=== PATIENT | male | born 1950 | race Caucasian/White ===

== ENCOUNTER 2022-10-10 07:44 | Observation (INO) | payer OTHER ==
--- OUTSIDE RECORDS SUMMARY | 2022-10-10 07:48 | XMS REPORT | Continuity of Care Document ---
:1950 Author Organization [facility] t Address [address] [facility] [address] [place] [address] Care Team Providers Name Role Phone Covarrubias Gregorio Hill Primary Care Physician Cristy Norman Attending Clinician Ramon Aguila MD Attending Clinician Doctor Unassigned, [place] Attending Clinician Unavailable RAMON AGUILA Attending Clinician Unavailable CRISTY VELAZQUEZ Attending Clinician Unavailable Pob, Adc Lab Main Attending Clinician Unavailable El Gardner MD Attending Clinician EL GARDNER Attending Clinician Unavailable Anjel Dennison DO Attending Clinician Lab, Adc Fam Pob I Attending Clinician Unavailable Gianni Gomez Attending Clinician GIANNI SORIA Attending Clinician Unavailable Justin RAVI, Sendal K.H. Attending Clinician RAMON AGUILA Admitting Clinician Unavailable CRISTY VELAZQUEZ Admitting Clinician Unavailable Payers Payer Name Policy Type Policy Number Effective Date Expiration Date S ource Problems Condition Condition Condition Status Onset Resolution Last Treating Co mments Source Name Details Category Date Date Treatment Clinician Date Primary Primary Disease Active Overview: Univ ers osteoarthr osteoarthr 2-28 Formattin ity of itis of itis of 00:00: g of this [place] right knee right knee 00 note Me dical might be Branch different from the original. Added automatic ally from request for surgery [id number] Total knee Total knee Disease Active U nivers replacemen replacemen 6-04 it y of t status t status 00:00: [place] [address] [facility] Allergies, Adverse Reactions, Alerts Allergy Allergy Status Severity Reaction(s) Onset Inactive Treating Comm ents Source Name Type Date Date Clinician NO KNOWN Drug Active Univers ALLERGIE Class ity of S [facility] Social History Social Habit Start Date Stop Date Quantity Comments Source Exposure to Not sure [facility] SARS-CoV-2 (event) Medica l Branch Alcohol intake 2021-06-10 2021-06-10 0 /d [facility] 00:00:00 00:00:[address] [facility] Sex Assigned At [birth year] [facility] 00:00:00 00:00:[address] [facility] Smoking Status Start Date Stop Date Source Never smoked tobacco [facility] Medications Ordered Filled Start Stop Current Ordering Indication Dosage Frequency Signature Comments Components Source Medication Medication Date Date Medication? Clinician (SIG) Name Name DICLOFENAC 2021-08 Yes [id number] TAKE 1 Univers 75 mg EC 0-04 4102 TABLET BY ity of tablet 00:00: MOUTH [place] 00 TWICE A Medical DAY WITH Branch MEALS DICLOFENAC Yes [id number] TAKE 1 Univers 75 mg EC 7-11 TABLET BY ity of tablet 00:00: MOUTH [place] 00 TWICE A Medical DAY WITH Branch MEALS DICLOFENAC 2021- No [id number] TAKE 1 Univers 75 mg EC 7-11 10-04 4102 TABLET BY ity o f tablet 00:00: 00:00 MOUTH [place] 00 :00 TWICE A Medical DAY WITH Branch MEALS DICLOFENAC Yes [id number] TAKE 1 Univers 75 mg EC 3-23 TABLET BY ity of tablet 00:00: MOUTH [place] 00 TWICE A Medical DAY WITH Branch MEALS DICLOFENAC 2021- No [id number] TAKE 1 Univers 75 mg EC 3-23 07-11 TABLET BY ity o f tablet 00:00: 00:00 MOUTH [place] 00 :00 TWICE A Medical DAY WITH Branch MEALS diclofenac Yes [id number] 75mg Take 1 Univers 75 mg EC 1-04 tablet by ity of tablet 00:00: mouth 2 [place] 00 (two) Medical times Branch daily with meals. diclofenac 2021- No [id number] 75mg Take 1 Univers 75 mg EC 1-04 03-23 tablet by ity o f tablet 00:00: 00:00 mouth 2 [place] 00 :00 (two) Medical times [place] daily with meals. DICLOFENAC 0 Yes [id number] TAKE 1 Univers 75 mg EC 6-25 TABLET BY ity of tablet 00:00: MOUTH [place] 00 TWICE A Medical DAY WITH Branch FOOD DICLOFENAC 2020-0 Yes [id number] TAKE 1 Univers 75 mg EC 6-25 TABLET BY ity of tablet 00:00: MOUTH [place] 00 TWICE A Medical DAY WITH Branch FOOD DICLOFENAC 0 2- No [id number] TAKE 1 Univers 75 mg EC 6-25 -04 TABLET BY ity o f tablet 00:00: 00:00 MOUTH [place] 00 :00 TWICE A Medical DAY WITH Branch FOOD amLODIPine Yes 10mg Take 10 mg U nivers 10 mg 6-23 by mouth ity of tablet 16:01: daily. [address] amLODIPine Yes 10mg Take 10 mg U nivers 10 mg 6-23 by mouth ity of tablet 16:01: daily. [address] amLODIPine Yes 10mg Take 10 mg U nivers 10 mg 6-23 by mouth ity of tablet 16:01: daily. [address] amLODIPine 0 Yes 10mg Take 10 mg U nivers 10 mg 6-23 by mouth ity of tablet 16:01: daily. [address] amLODIPine Yes 10mg Take 10 mg U nivers 10 mg 6-23 by mouth ity of tablet 16:01: daily. [address] amLODIPine Yes 10mg Take 10 mg U nivers 10 mg 6-23 by mouth ity of tablet 16:01: daily. [address] VITAMIN E, Yes 100U Take 100 Uni vers DL,TOCOPHER 2-11 Units by ity of YL ACET, 09:05: mouth [place] (DL-VITAMIN 50 daily. Medica l E ACETATE) Branch 100 unit capsule ascorbic Yes 500mg Take 500 Univ ers acid 2-11 mg by ity of (VITAMIN C) 09:05: mouth 2 Nitin as 500 mg 50 (two) Medical tablet times [place] daily. VITAMIN B Yes 1{tbl} Take 1 Tab Univers COMPLEX 2-11 by mouth ity of ORAL 09:05: daily. [address] CALCIUM/MAG 0 Yes 1{tbl} Take 1 Tab Univers NESIUM/ZINC 2-11 by mouth 2 it y of (CALCIUM-MA 09:05: (two) [place] GNESUIUM-ZI 50 times Medical [place]) daily. Branch 333-133-5 mg Tab rosuvastati 2020-0 Yes 10mg Take 10 mg Univers n 10 mg 2-11 by mouth ity of tablet 09:05: at [place] [address] bedtime. Medical Indication Branch s: takes 3x/week only omega 2020-0 Yes 1{capsu Take 1 Univers 3-dha-epa-f 2-11 le} capsule by it y of magda oil 09:05: mouth [place] (FISH OIL) 50 daily. Medical 360-1,200 Branch mg CpDR aspirin 81 2020-0 Yes 81mg Take 81 mg U nivers mg chewable 2-11 by mouth ity of tablet 09:05: daily. [address] VITAMIN E, 0 Yes 100U Take 100 Uni vers DL,TOCOPHER 2-11 Units by ity of YL ACET, 09:05: mouth [place] (DL-VITAMIN 50 daily. Medica l E ACETATE) Branch 100 unit capsule ascorbic 0 Yes 500mg Take 500 Univ ers acid 2-11 mg by ity of (VITAMIN C) 09:05: mouth 2 Nitin as 500 mg 50 (two) Medical tablet times Branch daily. VITAMIN B 0 Yes 1{tbl} Take 1 Tab Univers COMPLEX 2-11 by mouth ity of ORAL 09:05: daily. [address] CALCIUM/MAG 2020-0 Yes 1{tbl} Take 1 Tab Univers NESIUM/ZINC 2-11 by mouth 2 it y of (CALCIUM-MA 09:05: (two) [place] GNESUIUM-ZI 50 times Medical [place]) daily. Branch 333-133-5 mg Tab rosuvastati 2020-0 Yes 10mg Take 10 mg Univers n 10 mg 2-11 by mouth ity of tablet 09:05: at [place] [address] bedtime. Medical Indication Branch s: takes 3x/week only omega 2020-0 Yes 1{capsu Take 1 Univers 3-dha-epa-f 2-11 le} capsule by it y of magda oil 09:05: mouth [place] (FISH OIL) 50 daily. Medical 360-1,200 Branch mg CpDR aspirin 81 0 Yes 81mg Take 81 mg U nivers mg chewable 2-11 by mouth ity of tablet 09:05: daily. [address] VITAMIN E, Yes 100U Take 100 Uni vers DL,TOCOPHER 2-11 Units by ity of YL ACET, 09:05: mouth [place] (DL-VITAMIN 50 daily. Medica l E ACETATE) Branch 100 unit capsule ascorbic Yes 500mg Take 500 Univ ers acid 2-11 mg by ity of (VITAMIN C) 09:05: mouth 2 Nitin as 500 mg 50 (two) Medical tablet times Branch daily. VITAMIN B Yes 1{tbl} Take 1 Tab Univers COMPLEX 2-11 by mouth ity of ORAL 09:05: daily. [address] CALCIUM/MAG Yes 1{tbl} Take 1 Tab Univers NESIUM/ZINC 2-11 by mouth 2 it y of (CALCIUM-MA 09:05: (two) [place] GNESUIUM-ZI 50 times Medical [place]) daily. Branch 333-133-5 mg Tab rosuvastati Yes 10mg Take 10 mg Univers n 10 mg 2-11 by mouth ity of tablet 09:05: at [place] [address] bedtime. Medical Indication Branch s: takes 3x/week only omega Yes 1{capsu Take 1 Univers 3-dha-epa-f 2-11 le} capsule by it y of magda oil 09:05: mouth [place] (FISH OIL) 50 daily. Medical 360-1,200 Branch mg CpDR aspirin 81 Yes 81mg Take 81 mg U nivers mg chewable 2-11 by mouth ity of tablet 09:05: daily. [address] VITAMIN E, Yes 100U Take 100 Uni vers DL,TOCOPHER 2-11 Units by ity of YL ACET, 09:05: mouth [place] (DL-VITAMIN 50 daily. Medica l E ACETATE) Branch 100 unit capsule ascorbic 0 Yes 500mg Take 500 Univ ers acid 2-11 mg by ity of (VITAMIN C) 09:05: mouth 2 Nitin as 500 mg 50 (two) Medical tablet times [place] daily. VITAMIN B Yes 1{tbl} Take 1 Tab Univers COMPLEX 2-11 by mouth ity of ORAL 09:05: daily. [address] CALCIUM/MAG 0 Yes 1{tbl} Take 1 Tab Univers NESIUM/ZINC 2-11 by mouth 2 it y of (CALCIUM-MA 09:05: (two) [place] GNESUIUM-ZI 50 times Medical [place]) daily. Branch 333-133-5 mg Tab rosuvastati 2020-0 Yes 10mg Take 10 mg Univers n 10 mg 2-11 by mouth ity of tablet 09:05: at [place] [address] bedtime. Medical Indication Branch s: takes 3x/week only omega 2020-0 Yes 1{capsu Take 1 Univers 3-dha-epa-f 2-11 le} capsule by it y of magda oil 09:05: mouth [place] (FISH OIL) 50 daily. Medical 360-1,200 Branch mg CpDR aspirin 81 0 Yes 81mg Take 81 mg U nivers mg chewable 2-11 by mouth ity of tablet 09:05: daily. [address] VITAMIN E, 0 Yes 100U Take 100 Uni vers DL,TOCOPHER 2-11 Units by ity of YL ACET, 09:05: mouth [place] (DL-VITAMIN 50 daily. Medica l E ACETATE) Branch 100 unit capsule ascorbic 0 Yes 500mg Take 500 Univ ers acid 2-11 mg by ity of (VITAMIN C) 09:05: mouth 2 Nitin as 500 mg 50 (two) Medical tablet times Branch daily. VITAMIN B 0 Yes 1{tbl} Take 1 Tab Univers COMPLEX 2-11 by mouth ity of ORAL 09:05: daily. [address] CALCIUM/MAG 0 Yes 1{tbl} Take 1 Tab Univers NESIUM/ZINC 2-11 by mouth 2 it y of (CALCIUM-MA 09:05: (two) [place] GNESUIUM-ZI 50 times Medical [place]) daily. Branch 333-133-5 mg Tab rosuvastati 2020-0 Yes 10mg Take 10 mg Univers n 10 mg 2-11 by mouth ity of tablet 09:05: at [place] [address] bedtime. Medical Indication Branch s: takes 3x/week only omega 2020-0 Yes 1{capsu Take 1 Univers 3-dha-epa-f 2-11 le} capsule by it y of magda oil 09:05: mouth [place] (FISH OIL) 50 daily. Medical 360-1,200 Branch mg CpDR aspirin 81 0 Yes 81mg Take 81 mg U nivers mg chewable 2-11 by mouth ity of tablet 09:05: daily. [address] Branch VITAMIN E, Yes 100U Take 100 Uni vers DL,TOCOPHER 2-11 Units by ity of YL ACET, 09:05: mouth [place] (DL-VITAMIN 50 daily. Medica l E ACETATE) Branch 100 unit capsule ascorbic Yes 500mg Take 500 Univ ers acid 2-11 mg by ity of (VITAMIN C) 09:05: mouth 2 Nitin as 500 mg 50 (two) Medical tablet times Branch daily. VITAMIN B Yes 1{tbl} Take 1 Tab Univers COMPLEX 2-11 by mouth ity of ORAL 09:05: daily. [address] CALCIUM/MAG Yes 1{tbl} Take 1 Tab Univers NESIUM/ZINC 2-11 by mouth 2 it y of (CALCIUM-MA 09:05: (two) [place] GNESUIUM-ZI 50 times Medical [place]) daily. Branch 333-133-5 mg Tab rosuvastati Yes 10mg Take 10 mg Univers n 10 mg 2-11 by mouth ity of tablet 09:05: at [place] [address] bedtime. Medical Indication Branch s: takes 3x/week only omega Yes 1{capsu Take 1 Univers 3-dha-epa-f 2-11 le} capsule by it y of magda oil 09:05: mouth [place] (FISH OIL) 50 daily. Medical 360-1,200 Branch mg CpDR aspirin 81 Yes 81mg Take 81 mg U nivers mg chewable 2-11 by mouth ity of tablet 09:05: daily. [address] Branch VALSARTAN Yes TAKE 1 Univer s 40 mg 4-07 TABLET BY ity of tablet 00:00: MOUTH [place] 00 TWICE A Medical DAY Branch VALSARTAN 0 Yes TAKE 1 Univer s 40 mg 4-07 TABLET BY ity of tablet 00:00: MOUTH [place] 00 TWICE A Medical DAY Branch VALSARTAN 2019-0 Yes TAKE 1 Univer s 40 mg 4-07 TABLET BY ity of tablet 00:00: MOUTH [place] 00 TWICE A Medical DAY Branch VALSARTAN 2020-0 Yes TAKE 1 Univer s 40 mg 4-07 TABLET BY ity of tablet 00:00: MOUTH [place] 00 TWICE A Medical DAY Branch VALSARTAN Yes TAKE 1 Univer s 40 mg 4-07 TABLET BY ity of tablet 00:00: MOUTH [place] 00 TWICE A Medical DAY Branch VALSARTAN Yes TAKE 1 Univer s 40 mg 4-07 TABLET BY ity of tablet 00:00: MOUTH [place] 00 TWICE A Medical DAY Branch Diclofenac 2018-08 Yes [id number] Apply Univers Sodium 0-25 2mg-4mg to ity of (VOLTAREN) 00:00: affected Nitin as 1 % gel 00 area 4 Medical times Branch daily Diclofenac 2018-08 Yes [id number] Apply Univers Sodium 0-25 2mg-4mg to ity of (VOLTAREN) 00:00: affected Nitin as 1 % gel 00 area 4 Medical times Branch daily Diclofenac 2018-08 Yes [id number] Apply Univers Sodium 0-25 2mg-4mg to ity of (VOLTAREN) 00:00: affected Nitin as 1 % gel 00 area 4 Medical times Branch daily Diclofenac 2018-08 Yes [id number] Apply Univers Sodium 0-25 2mg-4mg to ity of (VOLTAREN) 00:00: affected Nitin as 1 % gel 00 area 4 Medical times Branch daily Diclofenac 2018-08 Yes [id number] Apply Univers Sodium 0-25 2mg-4mg to ity of (VOLTAREN) 00:00: affected Nitin as 1 % gel 00 area 4 Medical times Branch daily Diclofenac 2018-08 Yes [id number] Apply Univers Sodium 0-25 4102 2mg-4mg to ity of (VOLTAREN) 00:00: affected Nitin as 1 % gel 00 area 4 Medical times Branch daily acetaminoph Yes [id number] 1{tbl} Take 1 Univers en-codeine 3-26 05 tablet by ity of (TYLENOL-CO 00:00: mouth [place] DEINE #3) 00 every 4 Medical 300-30 mg (four) Branch tablet hours as needed for Pain (scale 4-6) or Pain (scale 7-10). acetaminoph Yes [id number] 1{tbl} Take 1 Univers en-codeine 3-26 05 tablet by ity of (TYLENOL-CO 00:00: mouth [place] DEINE #3) 00 every 4 Medical 300-30 mg (four) Branch tablet hours as needed for Pain (scale 4-6) or Pain (scale 7-10). acetaminoph Yes [id number] 1{tbl} Take 1 Univers en-codeine 3-26 05 tablet by ity of (TYLENOL-CO 00:00: mouth [place] DEINE #3) 00 every 4 Medical 300-30 mg (four) Branch tablet hours as needed for Pain (scale 4-6) or Pain (scale 7-10). acetaminoph Yes [id number] 1{tbl} Take 1 Univers en-codeine 3-26 05 tablet by ity of (TYLENOL-CO 00:00: mouth [place] DEINE #3) 00 every 4 Medical 300-30 mg (four) Branch tablet hours as needed for Pain (scale 4-6) or Pain (scale 7-10). acetaminoph Yes [id number] 1{tbl} Take 1 Univers en-codeine 3-26 05 tablet by ity of (TYLENOL-CO 00:00: mouth [place] DEINE #3) 00 every 4 Medical 300-30 mg (four) Branch tablet hours as needed for Pain (scale 4-6) or Pain (scale 7-10). acetaminoph Yes [id number] 1{tbl} Take 1 Univers en-codeine 3-26 05 tablet by ity of (TYLENOL-CO 00:00: mouth [place] DEINE #3) 00 every 4 Medical 300-30 mg (four) Branch tablet hours as needed for Pain (scale 4-6) or Pain (scale 7-10). Vital Signs Vital Name Observation Time Observation Value Comments Source Systolic blood 2021-05-25 19:31:00 134 mm[Hg[facility] pressure [facility] Diastolic blood 2021-05-25 19:31:00 68 mm[Hg] [facility] Heart rate 2021-05-25 19:31:00 61 /min [facility] Body weight 2021-05-25 19:31:00 107.049 kg [facility] BMI 2021-05-25 19:31:00 30.30 kg/m2 [facility] Procedures Procedure Date / Time Performed Performing Clinician Sourc e REFERRAL- 2021-06-12 05:01:00 Doctor Unassigned, No [facility] REQUEST/RESPONSE Name [facility] Encounters Start End Encounter Admission Attending Care Care Encounter Source Date/Time Date/Time Type Type Clinicians Facility Department ID 2022-05-11 2022-05-11 [facility] 1.2.840.114 [id number] Univers 00:00:00 00:00:00 Cristy S HEALTH 350.1.13.10 it y of [place] 4.2.7.2.686 Nitin as ANAHI?BLEA [phone] Nm evangelina [address] MEDICAL OFFICE [facility] 2022-02-10 2022-02-10 [facility] 1.2.840.114 [id number] Univers 00:00:00 00:00:00 Cristy S HEALTH 350.1.13.10 it y of [place] 4.2.7.2.686 Nitin as ANAHI?BLEA [phone] Nm evangelina GUTIÉRREZ [address] [place] [address] MEDICAL OFFICE [facility] 2021-10-28 2021-10-28 [facility] 1.2.840.114 [id number] Univers 00:00:00 00:00:00 Cristy S HEALTH 350.1.13.10 it y of [place] 4.2.7.2.686 Nitin as ANAHI?BLEA [phone] Nm evangelina GUTIÉRREZ [address] [place] [address] OFFICE [facility] 2021-08-11 2021-08-11 [facility]aca [facility] [id number] Univers 00:00:00 00:00:00 Ramon L HEALTH 350.1.13.10 it y of [place] 4.2.7.2.686 Nitin as ANAHI?BLEA [phone] Nm evangelina GUTIÉRREZ [address] [place] [address] MEDICAL OFFICE [facility] 2021-06-12 2021-06-12 Orders Doctor CHATMAN 1.2.840.114 [id number] Univers 00:00:00 00:00:00 Only Unassigned, TIA 350.1.13.10 ity of [place] [facility] 4.2.7.2.686 Nitin as [id number] [address] 2021-06-10 2021-06-10 Office Cristy Velazquez [facility] 1.2.840.114 [id number] Univers 14:09:02 14:24:02 Visit Ramon Aguila [facility] 350.1.13.10 ity of [place] 4.2.7.2.686 Nitin as ANAHI?BLEA [id number] Nm evangelina GUTIÉRREZ [address] [place] [address] MEDICAL OFFICE [facility] 2021-06-10 2021-06-10 Outpatient [facility] [id number] Univers 14:15:00 14:15:00 RAMON ramirez [facility] 2021-06-03 2021-06-03 Outpatient R AYLA [facility] [id number] Univers 07:39:20 23:59:00 RAMON ramirez [facility] 2021-06-03 2021-06-03 Hospital [facility] 1.2.840.114 [id number] Univers 07:39:20 23:59:00 Encounter Ramon Goodman [place] 350.1.13.10 ity of [place] 4[place]2.7.2.686 [place] [phone] [facility] [address] [place] 2021-05-25 2021-05-25 Office Ayla [facility] [id number] Univers 14:30:40 14:46:47 Visit Ramon Goodman [facility] 350.1.13.10 it y of [place] 4.2.7.2.686 Nitin as ANAHI?BLEA [phone] Nm evangelina GUTIÉRREZ [address] [place] [address] MEDICAL OFFICE [facility] 2021-05-25 2021-05-25 Outpatient R AYLA [facility] [id number] Univers 14:30:00 14:46:47 RAMON ramirez [facility] 2021-05-25 2021-05-25 Outpatient R AYLA [facility] [id number] Univers 14:30:00 14:30:00 RAMON ramirez [facility] 2021-05-20 2021-05-20 Outpatient R AYLA [facility] [id number] Univers 13:45:00 13:45:00 RAMONMARIE ramirez [facility] 2021-05-13 2021-05-13 Orders Doctor LURDES 1.2.840.114 [id number] Univers 00:00:00 00:00:00 Only Unassigned, TIA 350.1.13.10 ity of [place] [facility] 4.2.7.2.686 Nitin as [phone] [address] 2021-04-27 2021-04-27 Orders Doctor CHATMAN 1.2.840.114 [id number] Univers 00:00:00 00:00:00 Only Unassigned, TIA 350.1.13.10 ity of [place] [facility] 4.2.7.2.686 Nitin as [id number] [address] 2021-03-16 2021-03-16 Orders Doctor CHATMAN 1.2.840.114 [id number] Univers 00:00:00 00:00:00 Only Unassigned, TIA 350.1.13.10 ity of [place] [facility] 4.2.7.2.686 Nitin as [id number] [address] 2021-03-11 2021-03-11 Office Ayla [facility] [id number] Univers 12:51:36 13:18:30 Visit [facility] 350.1.13.10 it y of Surgical 4.2.7.2.686 Nitin as Specialti [phone] [address] 2021-03-11 2021-03-11 Outpatient R AYLA [facility] [id number] Univers 13:00:00 13:00:00 RAMON itkeyana [facility] 2021-03-11 2021-03-11 Orders Doctor CHATMAN 1.2.840.114 [id number] Univers 00:00:00 00:00:00 Only Unassigned, TIA 350.1.13.10 ity of [place] [facility] 4.2.7.2.686 Nitin as [phone] [address] 2021-02-25 2021-02-25 Office Caroline TNINDIRA 1.2.840.114 [id number] Univers 13:57:11 14:12:11 Visit [facility] 350.1.13.10 it y of Surgical 4.2.7.2.686 Nitin as Specialti [phone] Nm dical es [address] [place] 2021-02-25 2021-02-25 Outpatient R CAROLINE [facility] [id number] Univers 14:00:00 14:00:00 CRISTY ity [facility] 2021-02-11 2021-02-11 [facility] 1.2.840.114 [id number] Univers 11:59:00 23:59:00 Encounter Ramon MERINO 350.1.13.10 [place]2.[place] [id number] [facility] [address] [place] 2021-02-11 2021-02-11 Outpatient R [facility] NUT [id number] Univers 00:00:00 00:00:00 RAMON ramirez [facility] 2021-02-05 2021-02-05 [facility] 1.2.840.114 [id number] Univers 11:31:02 23:59:00 Encounter Ramon Andino 350.1.13.10 ity of [place] 4.2.7.2.[place] [id number] [facility] [address] [place] 2021-02-05 2021-02-05 Stitcher Operator Rian, Pa[facility] Main [facility] 1.2.8 [id number] Univers 11:11:24 11:26:24 Visit Ramon Aguila 350.1.13.10 ity of [place] 4.2.7.2.[place] [id number] Nm dical nal 353 [facility] 2021-02-05 2021-02-05 Outpatient R [facility] [id number] Univers 11:00:00 11:00:00 RAMON ashley [facility] 2021-02-05 2021-02-05 Orders Doctor CHATMAN 1.2.840.114 [id number] Univers 00:00:00 00:00:00 Only Unassigned, TIA 350.1.13.10 ity of [place] [facility] 4.2.7.2.686 Nitin as [id number] [facility] 009 Branch 2021-02-03 2021-02-03 Telephone [facility] 1.2.840.114 [id number] Univers 00:00:00 00:00:00 Ramon [facility] 350.1.13.10 it y of Surgical 4.2.7.2.686 Nitin as Specialti [phone] Nm dical es 198 [facility] 2021-01-30 2021-01-30 Refill [facility] 1.2.840.114 [id number] Univers 00:00:00 00:00:00 Cristy [facility] 350.1.13.10 it y of Surgical 4.2.7.2.686 Nitin as Specialti [phone] Nm dical es 198 [facility] 2021-01-28 2021-01-28 Office [facility] 1.2.840.114 [id number] Univers 15:52:43 16:28:09 Visit [place] 350.1.13.10 ity of [place] 4[place]2.7.2.[place] [phone] Nm dical nal 059 [facility] 2021-01-28 2021-01-28 Outpatient R [facility]WVUMED[facility] [id number] Univers 16:00:00 16:00:00 EL ramirez o f [facility] 2021-01-20 2021-01-20 Office [facility] 1.2.840.114 [id number] Univers 14:42:35 15:14:23 Visit Cristy Poon 350.1.13.10 it y of Surgical 4.2.7.2.686 Nitin as Specialti [phone] Nm dical es 198 [facility] 2021-01-20 2021-01-20 Outpatient R [facility]INE[facility]ED[facility] [id number] Univers 14:45:00 14:45:00 CRISTY ity [facility] 2021-01-13 2021-01-13 Telephone [facility] [id number] Univers 00:00:00 00:00:00 Cristy Andino 350.1.13.10 i ty [place].2.[place] [phone] Nm dical nal 198 [facility] 2021-01-01 2021-01-01 Outpatient R [facility] [id number] Univers 09:29:41 23:59:00 CRISTY ity [facility] 2021-01-01 2021-01-01 Hospital [facility] 1.2.840.114 [id number] Univers 09:29:41 23:59:00 Encounter Cristy Crump [place] 350.1.13.10 ity of [place] 4.2.7.2.686 [facility] [phone] [facility] [address] [place] 2021-01-01 2021-01-01 Outpatient R [facility] [id number] Univers 00:00:00 00:00:00 [facility] 2021-01-01 2021-01-01 Orders Doctor LURDES 1.2.840.114 [id number] Univers 00:00:00 00:00:00 Only Unassigned, TIA 350.1.13.10 ity of [place] [facility] 4.2.7.2.686 Nitin as [phone] [facility] [address] [place] 2020-12-18 2020-12-18 Office [facility] 1.2.840.114 [id number] Univers 10:31:38 11:05:04 Visit Cristy [facility] 350.1.13.10 it y of Surgical 4.2.7.2.686 Nitin as Specialti [phone] Nm dical es 198 [facility] 2020-12-18 2020-12-18 Outpatient R [facility] [id number] Univers 10:30:00 10:30:00 [facility] 2020-12-10 2020-12-10 Telephone [facility] [id number] Univers 00:00:00 00:00:00 [facility] 350.1.13.10 it y of Surgical 4.2.7.2.686 Nitin as Specialti [phone] Nm dical es 198 [facility] 2020-11-07 2020-11-07 [facility] 1.2.840.114 [id number] Univers 00:00:00 00:00:00 [facility] 350.1.13.10 it y of Surgical 4.2.7.2.686 Nitin as Specialti [phone] Me dical es 198 [place] 2020-10-13 2020-10-13 Patient Juma [facility] [id number] Univers 00:00:00 00:00:00 Outreach Anjel PRIMARY 350.1.13.10 i ty of [facility] [place] [phone] Me dical 388 [place] 2020-09-29 2020-09-29 Office [facility] 1.2.840.114 [id number] Univers 16:03:33 16:18:33 Visit [facility] [id number] it y of Surgical 4.2.7.2.686 Nitin as Specialti [phone] Nm dical es 198 [facility] 2020-09-29 2020-09-29 Outpatient Lawrence VELAZQUEZ [facility] [id number] Univers 16:15:00 16:15:00 [facility] 2020-09-18 2020-09-[address] [facility] 1.2.840.114 [id number] Univers 09:08:08 23:59:00 Encounter [facility] 350.1.13.10 ity of Surgical 4.2.7.2.686 Nitin as Specialti [phone] Me dical es 8[address] [place] 2020-09-18 2020-09-18 Office [facility] 1.2.840.114 [id number] Univers 08:59:02 09:14:02 Visit [facility] 350.1.13.10 it y of Surgical 4.2.7.2.686 Nitin as Specialti [phone] Me dical es 198 [facility] 2020-09-18 2020-09-18 Outpatient Lawrence VELAZQUEZ [facility] [id number] Univers 09:00:00 09:00:00 [facility] 2020-08-23 2020-08-23 Laboratory Lab, Adc Fam Pob I [facility] 1.2. 840.114 [id number] Univers 13:39:40 13:59:40 Only Gianni Soria [facility] [id number] ity of [place] 4.2.7.2.686 Nitin as Professio [phone] Nm dical nal 044 [facility] 2020-08-23 2020-08-23 Outpatient R YU [facility] [id number] Univers 13:40:00 13:40:00 GIANNI ity o f [facility] 2020-08-15 2020-08-15 Refill [facility] [id number] Univers 00:00:00 00:00:00 [facility] 350.1.13.10 it y of Surgical 4.2.7.2.686 Nitin as Specialti [phone] Nm dical es 198 [facility] 2020-05-22 2020-05-22 Telephone [facility] 1.2.840.114 [id number] Univers 00:00:00 00:00:00 [facility] 350.1.13.10 it y of Surgical 4.2.7.2.686 Nitin as Specialti [phone] Nm dical es 198 [facility] 2019-12-30 2019-12-30 Refgiulia [facility] 1.2.840.114 [id number] Univers 00:00:00 00:00:00 [facility] 350.1.13.10 it y of Surgical 4.2.7.2.686 Nitin as Specialti [phone] Nm dical es 198 [facility] 2019-12-11 2019-12-11 Refgiulia AndersonPRES[facility] 1.2.840.114 [id number] Univers 00:00:00 00:00:00 Alextaran KahnAn [place] 350.1.13.10 it[place] [phone] Nm dical nal 059 [facility] 2019-12-03 2019-12-03 Refgiulia [facility] 1.2.840.114 [id number] Univers 00:00:00 00:00:00 [facility] 350.1.13.10 it y of Surgical 4.2.7.2.686 Nitin as Specialti [phone] Nm dical es 198 [facility] 2019-11-13 2019-11-[address] [facility] 1.2.840.114 [id number] Univers 00:00:00 00:00:00 Deondre Andino 350.1.13.10 it[place] [phone] Nm dical nal 059 [facility] 2019-11-08 2019-11-08 [facility] 1.2.840.114 [id number] Univers 00:00:00 00:00:00 [facility] 350.1.13.10 it y of Surgical 4.2.7.2.686 Nitin as Specialti [phone] Nm dical es 198 [facility] 2019-10-13 2019-10-13 [facility] 1.2.840.114 [id number] Univers 00:00:00 00:00:00 Deondre Andino 350.1.13.10 [place] [phone] Nm evangelina nal [address] [place] [address] 2019-10-08 2019-10-08 [facility] 1.2.840.114 [id number] Univers 00:00:00 00:00:00 [facility] 350.1.13.10 it y of Surgical 4.2.7.2.686 Nitin as Specialti [phone] Nm dical es 198 [facility] 2019-09-16 2019-09-[address] [facility] 1.2.840.114 [id number] Univers 00:00:00 00:00:00 Deondre Andino 350.1.13.10 [place] [phone] Nm nandode nal [address] [place] [address] 2019-09-10 2019-09-10 [facility] 1.2.840.114 [id number] Univers 00:00:00 00:00:00 [facility] 350.1.13.10 it y of Surgical 4.2.7.2.686 Nitin as Specialti [phone] Nm dical es 198 [facility] 2019-08-23 2019-08-23 Flaca Anderson [facility] 1.2.840.114 [id number] Univers 00:00:00 00:00:00 Deondre Arreola [place] 350.1.13.10 [place].2.[place] [phone] Nm dical nal 059 [facility] 2019-04-03 2019-04-03 Flaca [facility] 1.2.840.114 [id number] Univers 00:00:00 00:00:00 Cristy [employer] 350.1.13.10 it y of Surgical 4.2.7.2.686 Nitin as Specialti [phone] Nm dical es 198 [facility] 2019-03-02 2019-03-02 Flaca [facility] 1.2.840.114 [id number] Univers 00:00:00 00:00:00 [facility] [employer] 350.1.13.10 it y of Surgical 4.2.7.2.686 Nitin as Specialti [phone] Nm dical es 198 [facility] Results This patient has no known results.
[2022-10-10 08:33] LABS: Hematocrit 44.8 % (39.6-49.0); Lymphocytes % 20.5 % (15.3-44.8); MCV 90.6 fL (80-100); MPV 8.7 fL (7.6-11.3); RBC Red Blood Cell Count 4.94 M/uL (4.33-5.43)
--- NOTE | 2022-10-10 08:33 | RAD REPORT ---
EXAM DESCRIPTION: CT - Head Brain Wo Cont - 10/10/2022 8:24 am CLINICAL HISTORY: dizziness COMPARISON: none TECHNIQUE: Computed axial tomography of the head was obtained. IV contrast was not requested. All CT scans are performed using dose optimization technique as appropriate and may include automated exposure control or mA/KV adjustment according to patient size. FINDINGS: An intracranial bleed is not seen The ventricles are normal in caliber No significant hypodense areas within the brain visualized No extra-axial fluid collection is noted. Fluid within the sinuses/ mastoids is not seen IMPRESSION: No acute intracranial abnormality is seen If patient's symptoms persist MRI of the brain would be recommended
[2022-10-10 09:01] LABS: Potassium 3.9 mmol/L (3.5-5.1); Troponin High Sensitivity 6.9 pg/mL (<58.9)
--- NOTE | 2022-10-10 09:26 | EDPHYS ---
Physician Documentation [facility] Name: Fausto Dixon Age: 72 yrs Sex: Male : 1950 Arrival Date: 10/10/2022 Time: 07:46 Bed 25 Private MD: Yumiko Covarrubias C ED Physician Steven Turner HPI: 10/10 08:22 This 72 yrs old Male presents to ER via Ambulatory with complaints of High Blood en Pressure, Dizziness. 08:22 72-year-old male with history of hypertension presents to ED with intermittent en lightheadedness and feeling near syncopal over the last 2 days. He reports that symptoms occur upon changing position from sitting to standing or supine to sitting and they were more prominent this morning. He describes it as a lightheadedness and not vertiginous. He reports associated nausea without chest pain, palpitations, shortness of breath or dyspnea on exertion. No numbness, tingling or weakness in extremities. His blood pressure was elevated this morning at 164/83 which is atypical for him. . Historical: - Allergies: 07:54 No Known Allergies; vg1 - Home Meds: 07:54 rosuvastatin oral [Active]; amlodipine oral [Active]; Aspirin Oral [Active]; valsartan vg1 oral [Active]; - PMHx: 07:54 Hypertensive disorder; vg1 - Immunization history:: Client reports receiving the 2nd dose of the Covid vaccine. - Social history:: Smoking status: Patient denies any tobacco usage or history of. ROS: 08:22 Constitutional: Negative for fever, chills, and weight loss, Eyes: Negative for injury, en pain, redness, and discharge, ENT: Negative for injury, pain, and discharge, Neck: Negative for injury, pain, and swelling, Cardiovascular: Negative for chest pain, palpitations, and edema, +near syncope Respiratory: Negative for shortness of breath, cough, wheezing, and pleuritic chest pain, Abdomen/GI: + nausea, Negative for abdominal pain, vomiting, diarrhea, and constipation, Neuro: +lightheaded, Negative for headache, weakness, numbness, tingling, and seizure. Exam: 08:22 Constitutional: This is a well developed, well nourished patient who is awake, alert, en and in no acute distress. Head/Face: Normocephalic, atraumatic. Eyes: Pupils equal round and reactive to light, extra-ocular motions intact. No nsytagmus, unable to reproduce vertigo with rotation of head or change in position Lids and lashes normal. Conjunctiva and sclera are non-icteric and not injected. Cornea within normal limits. Periorbital areas with no swelling, redness, or edema. ENT: Nares patent. No nasal discharge, no septal abnormalities noted. Tympanic membranes are normal and external auditory canals are clear. Oropharynx with no redness, swelling, or masses, exudates, or evidence of obstruction, uvula midline. Mucous membranes moist. Neck: Trachea midline, no thyromegaly or masses palpated, and no cervical lymphadenopathy. Supple, full range of motion without nuchal rigidity, or vertebral point tenderness. No Meningismus. No carotid bruits Chest/axilla: Normal chest wall appearance and motion. Nontender with no deformity. No lesions are appreciated. Cardiovascular: Regular rate and rhythm with a normal S1 and S2. No gallops, murmurs, or rubs. Normal PMI, no JVD. No pulse deficits. Respiratory: Lungs have equal breath sounds bilaterally, clear to auscultation and percussion. No rales, rhonchi or wheezes noted. No increased work of breathing, no retractions or nasal flaring. Abdomen/GI: Soft, non-tender, with normal bowel sounds. No distension or tympany. No guarding or rebound. No evidence of tenderness throughout. Neuro: Awake and alert, GCS 15, oriented to person, place, time, and situation. Cranial nerves II-XII grossly intact. Motor strength 5/5 in all extremities. Sensory grossly intact. Cerebellar exam normal. Normal gait. NIH 0, normal cerebellar exam, steady gait Vital Signs: 07:52 BP 150 / 82; Pulse 60; Resp 16; Pulse Ox 100% ; Weight 104.33 kg; Height 6 ft. 2 in. vg1 (187.96 cm); Pain 0/10; 08:02 Temp 97.8(O); vg1 09:55 BP 161 / 71; Pulse 49; Resp 16; Pulse Ox 100% on R/A; iw 12:30 BP 168 / 78; Pulse 56; Resp 15; Pulse Ox 96% on R/A; hb 14:20 BP 156 / 71; Pulse 57; Resp 14; Pulse Ox 97% on R/A; hb 07:52 Body Mass Index 29.53 (104.33 kg, 187.96 cm) vg1 MDM: 08:11 Patient medically screened. en 08:22 Differential diagnosis: hypertensive crisis, Malignant HTN, CVA, intracerebral en hemorrhage, orthostatic Hypotension, symptomatic bradycardia, heart block, anemia. Data interpreted: equipment monitor phototypesetting: rate is 53 beats/min, rhythm is normal sinus rhythm, sinus bradycardia, Pulse oximetry: on room air 99%. Data reviewed: vital signs, nurses notes, lab test result(s), cardiac enzymes, CBC, electrolytes, hepatic panel, EKG. Data reviewed: radiologic studies, plain films. Data reviewed: EKG, EKG with sinus bradycardia at 53bpm and 1st degree AV Block, RAD, no STEMI, normal ST segments. Historians other than the Patient: Spouse/Significant Other: Pt did not take HTN meds today. 09:22 Consideration of Admission/Observation Patient was admitted/placed on observation. en Independent interpretation of the following test(s) in the Emergency Department EKG: See my EKG interpretation above X-Ray: My interpretation is CXR NAD. equipment monitor phototypesetting: sinus bradycardia at 44bpm with 1st degree AV block. Counseling: I had a detailed discussion with the patient and/or guardian regarding: the historical points, exam findings, and any diagnostic results supporting the discharge/admit diagnosis, lab results, radiology results, the need for further work-up and treatment in the hospital. Admission orders: after a detailed discussion of the patient's condition and case, the admit orders are written by me. ED course: Reviewed imaging and labs with patient and . Patient appears to have symptomatic bradycardia with his heart rate dropping into the 40s on monitoring and evaluation advisor. Blood pressure has remained 150s/80s. Troponin negative x1. EKG with sinus bradycardia with a first-degree AV block. Will admit to telemetry. Accepted by PCP Dr. Covarrubias. 10/10 08:12 Order name: Basic Metabolic Panel en 10/10 08:12 Order name: CBC with Diff en 10/10 08:12 Order name: Troponin HS en 10/10 08:12 Order name: XRAY Chest (1 view) en 10/10 08:12 Order name: EKG; Complete Time: 08:14 en 10/10 08:12 Order name: Cardiac monitoring; Complete Time: 08:20 en 10/10 08:12 Order name: EKG - Nurse/Tech; Complete Time: 08:20 en 10/10 08:12 Order name: IV Saline Lock; Complete Time: 08:20 en 10/10 08:12 Order name: Labs collected and sent; Complete Time: 08:20 en 10/10 08:12 Order name: O2 Per Protocol; Complete Time: 08:20 en 10/10 08:12 Order name: O2 Sat Monitoring; Complete Time: 08:20 en 10/10 08:12 Order name: CT Head Brain wo Cont en 10/10 08:34 Order name: CT; Complete Time: 09:15 EDMS 10/10 08:36 Order name: CBC with Automated Diff; Complete Time: 09:15 EDMS 10/10 09:02 Order name: Basic Metabolic Panel; Complete Time: 09:15 EDMS 10/10 09:02 Order name: Troponin High Sensitivity; Complete Time: 09:15 EDMS 10/10 09:21 Order name: SARS RAPID eb 10/10 09:32 Order name: RAD EDMS 10/10 10:37 Order name: SARS-COV-2 Antigen Rapid EDMS 10/10 13:41 Order name: Magnesium EDMS 10/10 13:41 Order name: Thyroid Stimulating Hormone EDMS 10/11 02:58 Order name: Basic Metabolic Panel EDMS 10/11 03:08 Order name: CBC with Automated Diff EDMS 10/11 14:01 Order name: MRI EDMS Administered Medications: No medications were administered Disposition Summary: 10/10/22 09:25 Hospitalization Ordered Hospitalization Status: Inpatient Admission en Provider: Yumiko Covarrubias Condition: Guarded en Problem: new en Symptoms: are unchanged en Bed/Room Type: Standard en Location: [facility] ER HOLD(10/10/22 14:16) Room Assignment: ERHOLD-(10/10/22 14:16) ss Diagnosis - symptomatic bradycardia en - near syncope en Forms: - Medication Reconciliation Form en - SBAR form en Signatures: Dispatcher [employer] EDTala Sun RN RN ss Garcia, Victoria, RN RN amador1 Charlene Piña PA PA en Corrections: (The following items were deleted from the chart) 14:16 09:25 Telemetry/MedSurg (Inpatient) [facility] 14:16 09:25 en
--- NOTE | 2022-10-10 09:26 | ER ---
Nurse's Notes [facility] Name: Fausto Dixon Age: 72 yrs Sex: Male : 1950 Arrival Date: 10/10/2022 Time: 07:46 Bed 25 Private MD: Yumiko Covarrubias C Diagnosis: symptomatic bradycardia;near syncope Presentation: 10/10 07:52 Chief complaint: Patient states: dizziness and nausea upon wakening that began vg1 yesterday but subsided throughout the day; this morning stated same feeling with BP 167/84 and the dizziness has not gone away, also states h/a, denies chest pain or SOB. Coronavirus screen: Vaccine status: Patient reports receiving the 2nd dose of the covid vaccine. Client denies travel out of the [place] in the last 14 days. Ebola Screen: Patient negative for fever greater than or equal to 101.5 degrees Fahrenheit, and additional compatible Ebola Virus Disease symptoms Patient denies exposure to infectious person. Initial Sepsis Screen: Does the patient meet any 2 criteria? No. Patient's initial sepsis screen is negative. Does the patient have a suspected source of infection? No. Patient's initial sepsis screen is negative. Risk Assessment: Do you want to hurt yourself or someone else? Patient reports no desire to harm self or others. Onset of symptoms was October 09, 2022. 07:52 Method Of Arrival: Ambulatory vg1 07:52 Acuity: CLAUDIO 3 vg1 Triage Assessment: 07:54 General: Appears in no apparent distress. comfortable, Behavior is calm, cooperative. vg1 Pain: Denies pain. EENT: No deficits noted. Neuro: Level of Consciousness is awake, alert, obeys commands, Oriented to person, place, time, situation, Reports dizziness, headache frontal area. Cardiovascular: Patient's skin is warm and dry. GI: Reports nausea. Historical: - Allergies: 07:54 No Known Allergies; vg1 - Home Meds: 07:54 rosuvastatin oral [Active]; amlodipine oral [Active]; Aspirin Oral [Active]; valsartan vg1 oral [Active]; - PMHx: 07:54 Hypertensive disorder; vg1 - Immunization history:: Client reports receiving the 2nd dose of the Covid vaccine. - Social history:: Smoking status: Patient denies any tobacco usage or history of. Screenin:21 [facility] ED Fall Risk Assessment (Adult) History of falling in the last 3 months, iw including since admission No falls in past 3 months (0 pts). Abuse screen: Denies threats or abuse. Denies injuries from another. Nutritional screening: No deficits noted. Tuberculosis screening: No symptoms or risk factors identified. Assessment: 08:21 General: Appears in no apparent distress. Behavior is calm, cooperative. Pain: Denies iw pain. Neuro: Level of Consciousness is awake, alert, obeys commands, Oriented to person, place, time, situation, Moves all extremities. Full function. Neuro: Reports dizziness, Denies weakness. Cardiovascular: Reports lightheadedness, nausea, Denies chest pain, Capillary refill < 3 seconds in bilateral fingers Patient's skin is warm and dry. Respiratory: Respiratory effort is even, unlabored, Respiratory pattern is regular, symmetrical. GI: Abdomen is non-distended. Derm: Skin is intact, is healthy with good turgor. Musculoskeletal: Range of motion: intact in all extremities. 09:20 Reassessment: Patient appears in no apparent distress at this time. pt HR noted to have iw dipped to 47-48 bpm on monitor , SILKE Chang notified. 09:59 Reassessment: Low sodium diet placed in [employer] as VO given by Dr. Covarrubias. Called dietary staff to see if they can bring something now to hold patient over until lunch. OK per dietary staff. 11:20 Reassessment: Patient appears in no apparent distress at this time. Patient and/or iw family updated on plan of care and expected duration. Pain level reassessed. Patient is alert, oriented x 3, equal unlabored respirations, skin warm/dry/pink. 12:45 Reassessment: Patient appears in no apparent distress at this time. Patient and/or hb family updated on plan of care and expected duration. Pain level reassessed. Patient is alert, oriented x 3, equal unlabored respirations, skin warm/dry/pink. 14:00 Reassessment: Patient appears in no apparent distress at this time. Patient and/or hb family updated on plan of care and expected duration. Pain level reassessed. Patient is alert, oriented x 3, equal unlabored respirations, skin warm/dry/pink. Vital Signs: 07:52 BP 150 / 82; Pulse 60; Resp 16; Pulse Ox 100% ; Weight 104.33 kg; Height 6 ft. 2 in. vg1 (187.96 cm); Pain 0/10; 08:02 Temp 97.8(O); vg1 09:55 BP 161 / 71; Pulse 49; Resp 16; Pulse Ox 100% on R/A; iw 12:30 BP 168 / 78; Pulse 56; Resp 15; Pulse Ox 96% on R/A; hb 14:20 BP 156 / 71; Pulse 57; Resp 14; Pulse Ox 97% on R/A; hb 07:52 Body Mass Index 29.53 (104.33 kg, 187.96 cm) vg1 ED Course: 07:46 Patient arrived in ED. am2 07:46 Yumiko Covarrubias MD is Private Physician. am2 07:54 Triage completed. vg1 07:54 Arm band placed on. vg1 07:59 Steffany Ferguson, NELLY is Primary Nurse. iw 08:04 Charlene Piña PA is PHCP. en 08:04 Steven Turner MD is Attending Physician. en 08:21 Initial lab(s) drawn, by me, sent to lab. Inserted saline lock: 22 gauge in left wrist, iw using aseptic technique. Blood collected. 08:22 Patient has correct armband on for positive identification. Bed in low position. Call iw light in reach. Side rails up X2. Client placed on continuous cardiac and pulse oximetry monitoring. NIBP monitoring applied. 09:24 Yumiko Covarrubias MD is Hospitalizing Provider. en 16:35 No provider procedures requiring assistance completed. Patient admitted, IV remains in iw place. 10/11 01:33 Primary Nurse role handed off by Steffany Ferguson RN ds4 15:57 Stephani Russ, RN is Primary Nurse. eh3 Administered Medications: No medications were administered Medication: 10/10 08:21 VIS not applicable for this client. iw Outcome: 09:25 Decision to Hospitalize by Provider. en 16:36 Ad[facility] to [facility] Hold. [facility]. iw 16:36 Condition: good iw 16:36 Instructed on the need for admit. 03 15:59 Patient left the ED. db Signatures: Steffany Ferguson RN RN Tala Mike RN RN Gary Oneal ds4 Kirti Orozco RN RN Soraya Hannah Victoria RN RN vg1 Stephani Russ, RN RN eh3 Charlene Piña PA PA en Benton, Danielle RN RN db Corrections: (The following items were deleted from the chart) 10/10 09:55 09:55 BP 161 / 71; Pulse 50bpm; iw iw
--- NOTE | 2022-10-10 09:32 | RAD REPORT ---
EXAM DESCRIPTION: Dennis Single View10/10/2022 8:39 am CLINICAL HISTORY: Bradycardia COMPARISON: 2017 FINDINGS: The lungs appear clear of acute infiltrate. The heart is normal size IMPRESSION: No acute abnormalities displayed
[2022-10-10] MEDS ORDERED: ONDANSETRON 4 MG/2 ML VIAL IV PRN (10:00)
[2022-10-10 10:37] LABS: SARS-CoV-2 Antigen Rapid Res Negative (Negative)
[2022-10-10 13:40] LABS: Magnesium 2.2 mg/dL (1.6-2.4); Thyroid Stimulating Hormone 1.18 uIU/mL (0.358-3.740)
[2022-10-10 14:23] VITALS: BMI 29.4
--- NOTE | 2022-10-10 15:56 | HP ---
Date of Admission: 10/10/2022 Chief Complaint: Feeling dizzy. History Of Present Illness: This is a 72-year-old very pleasant male patient, who started to have co mplaints of feeling dizzy and nauseated yesterday. He is also describing little bit slight headache associated with this. Denies any visual complaints. No fall or head injury. The patient says dizzi ness problem got worse today compared to yesterday and that is why he came into emergency room. Gianfranco es any tingling, numbness of hands or legs or any weakness of hands or legs, or no incontinence probl em. After the patient was evaluated in the ER, I was contacted requesting admission to the hospital. The patient has remained in sinus rhythm, but his heart rate had dropped down as low as 40 beats pe r minute in the emergency room as reported by emergency room provider who contacted me for the admiss ion. The patient had a first-degree AV block, no other higher degree of AV block was reported. The patient denies any fever, chills, vomiting, diarrhea. No chest pain. No shortness of breath. Allergies: NO KNOWN ALLERGIES. Medications: List reviewed. Review of Systems: SEAT COVER MAKER: As mentioned above. All other systems reviewed and negative. Past Medical History: Significant for hypertension and hyperlipidemia. Past Surgical History: Reviewed. Family History: Reviewed. Social History: Negative for smoking and alcohol use. Physical Examination: Vital Signs: When he first came into emergency room; blood pressure 150/82, pulse 60, oxygen saturat ion 100%. Weight 104.3 kg, height 6 feet 2 inches. General: Awake, alert, oriented, not in distress. HEENT: Head atraumatic, normocephalic. Conjunctivae nonerythematous. Sclerae white. Mouth, no thr ush or edema noted. Ears/Nose, no mass, lesion, discharge noted. Neck: Supple. No JVD, lymph nodes, bruit, thyromegaly noted. Lungs: Bilateral good equal air entry. Clear to auscultation. No rhonchi. No rales. Heart: Normal heart sounds, no murmur or gallop. Abdomen: Soft, bowel sounds normal. No guarding, rigidity, tenderness, mass, hepatosplenomegaly, dis tention, or bruit noted. Extremities: No leg edema. No calf tenderness. Skin: No rash, ulcer, cellulitis. Lymphatics: No lymph node enlargement in neck, supraclavicular, infraclavicular region. Neuro: No focal neurological deficit. Chest: Unremarkable. External Genitalia: Deferred. Rectal: Deferred. Laboratory Data: White count 4.8, hemoglobin 15, platelets 192. Sodium 139, potassium 3.9, chloride 109, bicarb 26, BUN 13, creatinine 0.76, glucose 195. Troponin 6.9. EKG; normal sinus rhythm, firs t-degree AV block. Chest x-ray; no acute cardiopulmonary changes. CAT scan of the head was no acute intracranial changes. Impression: 1.Dizziness. 2.Sinus bradycardia. 3.Hypertension. 4.Hyperlipidemia. Plan: We will go ahead and admit the patient to hospital for further evaluation and management of th is problem. The patient will be admitted for observation on telemetry and monitor him for any higher degree of AV block, consult Cardiology. We will go ahead and get an MRI of the brain done tomorrow and his medications for hypertension and hyperlipidemia will be continued per order. I have ordered TSH and magnesium level. We will follow up on that and details and plan of treatment discussed with the patient and patient's , who was at bedside. Consult laborer bituminous paving for this bradycardia problem. DARY/BALJIT Voice ID: [id number]
[2022-10-10] MEDS ORDERED: ROSUVASTATIN 10 MG TAB PO SCH (21:00)
[2022-10-10] MEDS ORDERED: GABAPENTIN 300 MG CAP PO SCH (21:00)
[2022-10-10] MEDS ORDERED: AMLODIPINE 10 MG TAB PO SCH (21:00)
[2022-10-10] MEDS ORDERED: GABAPENTIN 300 MG CAP ONE (21:44)
[2022-10-10] MEDS ORDERED: AMLODIPINE 10 MG TAB ONE (21:44)
[2022-10-11 02:46] LABS: Absolute Lymphocytes (CBC) 2.2 K/uL (0.7-4.9); Hematocrit 46.7 % (39.6-49.0); Lymphocytes % 30.1 % (15.3-44.8); MCV 91.3 fL (80-100); MPV 8.9 fL (7.6-11.3); RBC Red Blood Cell Count 5.11 M/uL (4.33-5.43)
[2022-10-11 02:58] LABS: Potassium 3.8 mmol/L (3.5-5.1)
[2022-10-11 08:14] VITALS: TEMP 98.1
[2022-10-11] MEDS ORDERED: VALSARTAN 80 MG TAB PO SCH (09:00)
[2022-10-11] MEDS ORDERED: ASPIRIN EC 81 MG TAB PO SCH (09:00)
[2022-10-11 12:39] VITALS: BP 123/83
--- NOTE | 2022-10-11 14:01 | RAD REPORT ---
EXAM DESCRIPTION: MRI - Brain Wo Cont - 10/11/2022 11:24 am CLINICAL HISTORY: dizziness, headache COMPARISON: Noncontrast head CT 10/10/2022 TECHNIQUE: Multiplanar multisequence MRI of the brain performed without IV contrast. FINDINGS: No evidence of acute infarct or other diffusion signal abnormality. No evidence of acute intracranial hemorrhage or abnormal extra-axial fluid collections. Ventricular caliber within normal for age. Midline structures are unremarkable. Scattered subcortical and deep white matter T2/FLAIR hyperintensities, nonspecific, but suggestive of mild chronic small vessel ischemic changes. No mass effect or midline shift. Major vascular flow voids are preserved. Mastoid air cells and paranasal sinuses are clear. IMPRESSION: No acute intracranial process. No evidence of ventriculomegaly or mass effect.
[2022-10-11 14:47] VITALS: O2SAT 94
--- NOTE | 2022-10-11 16:41 | EKG ---
Test Date: 2022-10-10 Test Time: 08:09:17 Digital Sales Representative: MARCELL MEASUREMENT RESULTS: Intervals: Rate: 53 PA: 240 QRSD: 90 QT: 442 QTc: 414 [place]: P: 69 PA: 240 QRS: 76 T: 72 INTERPRETIVE STATEMENTS: Sinus bradycardia with sinus arrhythmia with 1st degree AV block Otherwise normal ECG No previous ECG available for comparison Electronically Signed On 10-11-22 16:37:30 TRAILER TECHNICIAN by Charly Evans
--- NOTE | 2022-10-11 23:47 | CON ---
Date of Consultation: 10/11/2022 Reason For Consultation: Bradycardia. History Of Present Illness: This 72-year-old male presented after he had an episode of nausea, some chest discomfort and felt dizzy. Upon evaluation in emergency room, heart rate was in the low 40s, s o I was consulted, but there is no advanced heart block. Denies having any chest pain. No other com plaints. Past Medical History: As outlined above in the HPI. He has hypertension and dyslipidemia. Medications: Refer to reconciliation sheet for detailed list. Allergies: NO KNOWN DRUG ALLERGIES. Family History: No premature coronary artery disease or cancer. Social History: Does not smoke or drink. Does not use any drugs. Review of Systems: All systems reviewed and they were negative except for mentioned in HPI. Physical Examination: Vital Signs: Reviewed. Head And Neck: Pupils are equal and reactive to light. Intact eye movements. No JVD. No cervical lymphadenopathy. Neck is supple. Thyroid is not enlarged. Lungs: Clear to auscultation bilaterally. No rhonchi, wheezing, or crackles. No accessory muscle u se. Heart: Regular rate and rhythm. No extra sounds. Abdomen: Soft, nontender. Bowel sounds positive. No organomegaly. No masses or hernia. No rigidi ty or rebound. Extremities: No edema, clubbing, or cyanosis. Intact pulses. Skin: No rash. Neurologic: Alert, awake, and oriented x3. No acute focal deficits appreciated. Investigations: Cardiac enzymes are negative. Assessment/recommendation: 1.Bradycardia. It is sinus bradycardia. No advanced heart block and with activities heart rate pic ks up nicely. Chronotropic functionality of the heart is intact and no further intervention is neede d here. 2.Chest discomfort. Cardiac enzymes are negative and the patient can be released home. We will cora n for outpatient exercise stress test and an echo. Thank you for the consult. /BALJIT Voice ID: [id number] Report ID: [id number]
--- NOTE | 2022-10-12 12:52 | DS ---
Date of Discharge: 10/11/2022 The patient was seen this morning for followup. He was lying in bed, not in distress. No new compla ints or problems reported. No headache, nausea, vomiting. No dizziness. Physical Examination: Vital Signs: Reviewed. This morning; temperature 98.2, pulse 51, lowest heart rate was 47 during ni ghttime. Respiratory rate 16, blood pressure 149/72, oxygen saturation 93% on room air. HEENT: Unremarkable. Lungs: Clear to auscultation. Heart: Sounds normal. Abdomen: Soft. Bowel sounds normal. No guarding, rigidity, tenderness, distention. Extremities: No leg edema. Laboratory Data: Yesterday upon admission; white count 4.8, hemoglobin 15, platelets 198. Today; wh ite count 7.4, hemoglobin 15.9, platelets 204. Yesterday; sodium 139, potassium 3.9, chloride 109, b icarb 26, BUN 13, creatinine 0.76, glucose 195. This morning; sodium 139, potassium 3.8, chloride 10 9, bicarb 27, BUN 12, creatinine 0.81, and glucose 158. History Of Present Illness: This is a 72-year-old pleasant male patient, came into emergency room wi complaints of feeling dizzy, headache, nausea. Please see dictated H and P for more information. His EKG had shown sinus bradycardia, first-degree AV block. He was admitted to the hospital on tele metry. Hospital did not have any beds available on the floor, so he was kept in the emergency room o n a monitored bed and he remained in sinus rhythm with sinus bradycardia. Last night, lowest heart r ate was 47 per minute. Cardiology consultation was requested from Dr. Evans and he evaluated the pa nicole today and recommended outpatient stress test. From Cardiology point of view, he released the p atient to go home and medically he was stable for discharge. His CAT scan of the head done yesterday was negative for any acute intracranial changes today. MRI of the brain without contrast was negati ve for any acute intracranial changes. Chest x-ray was negative for any acute cardiopulmonary change s. The patient was discharged to go home in stable condition with following discharge medication and instructions. Discharge Diagnoses: 1.Dizziness. 2.Sinus bradycardia. 3.Hypertension. 4.Hyperlipidemia. Discharge Medications And Instructions: 1.Continue all prior home medications. 2.Follow up at my office and with pest management supervisor, Dr. Evans's office in 2 weeks. DARY/MODL Voice ID: [id number] Report ID: [id number]
== END 2022-10-11 15:56 | disposition home or self-care (01) ==
LOC: ER 07:44 → INTOOBSV 12:22 → ERHOLD 12:22
PROVIDERS: ADMIT Internal Medicine; ATTEND Internal Medicine
DX: R00.1 Bradycardia, unspecified (principal); R11.0 Nausea; R51.9 Headache, unspecified; I10 Essential (primary) hypertension; E78.5 Hyperlipidemia, unspecified; Z20.822 Contact with and (suspected) exposure to COVID-19
CPT/HCPCS: 36415; 70450; 70551; 71045; 80048; 83735; 84443; 84484; 85025; 87811; 93005; G0378